=== PATIENT | male | born 1995 | race Caucasian/White ===

== ENCOUNTER → 2021-04-15 | Outpatient (CLI) | payer MEDICAID, OTHER ==
[~2021-04-15] MED LIST: ALBU0.632 IH; ALBU0.8322 IH; ALBU17AE3 INH; ALBU2.5V4 IH; ALBU2.5V52 INH; ALBU8.5H2 IH; ALBU8.5H4 IH; ALBU8.5HRX IH; ALBUNEBRX IH; ALBUTEROL; AMOX500C2 PO; Anti-depressant; BUDE10.2 IH; BUDE6HFA IH; CIPR500T78 PO; CYCL10TA9 PO; DICL50TA4 PO; DIPH50CA; DOXY100C2 PO; FLUT1DIS26 IH; FLUT1DIS27 IH; Flexeril; KETO75CA PO; LAMOTRIGINE; LISD60CA PO; Lamictal; MNTL10T PO; NAPR-1071 PO; NAPR-915 PO; OXYC-12 PO; PRD1T PO; PRD20T PO; PRED10TA PO; RT-ALBUINH IH; SULF1TAB35 PO; TRAM-42 PO; TRAM50TA2 PO; TRM50T PO; Z PACK; Zoloft
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
== END ==
LOC: RAD 10:15
PROVIDERS: ATTEND Physician Assistant
DX: M51.24 Other intervertebral disc displacement, thoracic region (principal); M51.25 Other intervertebral disc displacement, thoracolumbar region
CPT/HCPCS: 72148; 73221

== ENCOUNTER 2022-05-05 16:28 | Emergency (ER) | payer SELFPAY ==
[~2022-05-05] VITALS: Ht 72 cm; Wt 63.5 kg
[~2022-05-05 16:28] MED LIST changes: -DOXY100C2 PO; +DOXY100C5 PO; -SULF1TAB35 PO; +SULF1TAB38 PO
[2022-05-05] MEDS ORDERED: LIDOCAINE 1% INJ 20 ML VIAL INJ ONE (17:00)
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
[2022-05-05 17:05] LABS: BASOPHILS # (AUTO) 0.1 10^3/uL (0.0-0.1); BASOPHILS % (AUTO) 1 % (0-10); EOSINOPHILS # (AUTO) 0.1 10^3/uL (0.0-0.3); EOSINOPHILS % (AUTO) 1 % (0-10); HEMATOCRIT 43 % (40-54); HEMOGLOBIN 15.3 g/dL (13.3-17.7); LYMPHOCYTES # (AUTO) 1.7 10^3/uL (1.0-4.0); LYMPHOCYTES % (AUTO) 12 % (12-44); MEAN CORPUSCULAR HEMOGLOBIN 33 pg (25-34); MEAN CORPUSCULAR HGB CONC 36 g/dL (32-36); MEAN CORPUSCULAR VOLUME 92 fL (80-99); MEAN PLATELET VOLUME 9.7 fL (9.0-12.2); MONOCYTES # (AUTO) 1.2 10^3/uL (0.0-1.0); MONOCYTES % (AUTO) 9 % (0-12); NEUTROPHILS # (AUTO) 11.2 10^3/uL (1.8-7.8); NEUTROPHILS % (AUTO) 77 % (42-75); PLATELET COUNT 380 10^3/uL (130-400); WHITE BLOOD COUNT 14.4 10^3/uL (4.3-11.0)
[2022-05-05 17:11] LABS: ALBUMIN 4.2 GM/DL (3.2-4.5); POTASSIUM 3.6 MMOL/L (3.6-5.0)
[2022-05-05 17:12] LABS: CALCIUM 9.4 MG/DL (8.5-10.1)
[2022-05-05 17:14] LABS: TOTAL PROTEIN 7.1 GM/DL (6.4-8.2)
[2022-05-05 17:15] LABS: BILIRUBIN,TOTAL 0.4 MG/DL (0.1-1.0)
[2022-05-05] MEDS ORDERED: IOHEXOL 350 MG/ML 100 ML (OMNIPAQUE 350) VIAL IV ONE (17:15)
[2022-05-05] MEDS ORDERED: NS 100 ML (IVPB) BAG IV ONE (17:15)
[2022-05-05 17:17] LABS: CREATININE SERUM 0.87 MG/DL (0.60-1.30)
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
[2022-05-05] MEDS ORDERED: fentaNYL INJ 100 MCG/2 ML AMP IVP ONE (17:30)
[2022-05-05 17:48] LABS: BAND NEUTROPHILS 0 %; BASOPHILS % (MANUAL) 0 %; EOSINOPHILS % (MANUAL) 0 %; LYMPHOCYTES % (MANUAL) 11 %; MONOCYTES % (MANUAL) 4 %; NEUTROPHILS % (MANUAL) 85 %; RBC MORPH NORMAL
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
[2022-05-05] MEDS ORDERED: AMOX500C2 PO (18:17)
[2022-05-05] MEDS ORDERED: ACHD5005 PO (18:17)
[2022-05-05] MEDS ORDERED: OXYC1TAB87 PO (18:25)
[2022-05-05] MEDS ORDERED: oxyCODONE/APAP 5/325MG (PERCOCET 5) TABLET PO ONE (18:30)
[2022-05-05 18:41] VITALS: BP 122/62
== END 2022-05-05 18:41 | disposition home or self-care (01) ==
LOC: EDUNIT# 16:28 → ER 16:29
DX: S02.5XXA Fracture of tooth (traumatic), initial encounter for closed fracture (principal); S01.01XA Laceration without foreign body of scalp, initial encounter; Y00.XXXA Assault by blunt object, initial encounter
CPT/HCPCS: 36415; 70450; 71260; 72125; 73030; 74177; 80053; 85007; 85027

== ENCOUNTER 2022-05-11 13:37 | Emergency (ER) | payer SELFPAY ==
[~2022-05-11] VITALS: Ht 182 cm; Wt 63.5 kg
[~2022-05-11 13:37] MED LIST changes: +ACHD5005 PO; +OXYC1TAB87 PO
[2022-05-11 13:45] VITALS: BP 105/66
== END 2022-05-11 13:54 | disposition home or self-care (01) ==
LOC: EDUNIT# 13:37 → ER 13:38
DX: Z48.02 Encounter for removal of sutures (principal); Z28.310 Unvaccinated for COVID-19